=== PATIENT | male | born 1975 | race Caucasian/White ===

== ENCOUNTER 2017-12-03 15:03 | Emergency (ER) | payer OTHER ==
[~2017-12-03] VITALS: Ht 185.4 cm; Wt 86.2 kg
[~2017-12-03 15:03] MED LIST: ALBU90OI INH; CEPH500 PO; CODGUAEL PO; DOXY100 PO; ERYT.5TO OU; HYDACE5 PO; OXYACE5T PO; RXOXYACE PO; TRAM50 PO
[2017-12-03] MEDS ORDERED: IBU800 MG PO (16:12)
== END 2017-12-03 16:20 | disposition home or self-care (01) ==
LOC: ER 15:03
DX: S91.312A Laceration without foreign body, left foot, initial encounter (principal); W26.8XXA Contact with other sharp object(s), not elsewhere classified, initial encounter
CPT/HCPCS: 12002; 99282

== ENCOUNTER 2022-07-17 22:41 | Emergency (ER) | payer OTHER ==
[~2022-07-17] VITALS: Ht 182.9 cm; Wt 77.1 kg
[~2022-07-17 22:41] MED LIST changes: +IBU800 MG PO; +IBUP400 PO; +MINO50 PO
[2022-07-18] MEDS ORDERED: IBUP800 PO (04:51)
[2022-07-18] MEDS ORDERED: AMOCLA875 PO (04:51)
[2022-07-18 05:00] VITALS: BP 133/89
== END 2022-07-18 05:00 | disposition home or self-care (01) ==
LOC: ER 22:41
DX: S51.852A Open bite of left forearm, initial encounter (principal); F17.210 Nicotine dependence, cigarettes, uncomplicated; Z23 Encounter for immunization; W54.0XXA Bitten by dog, initial encounter
CPT/HCPCS: 90471; 90714; 99283-25; A9270

== ENCOUNTER 2023-10-11 08:05 | Day surgery (SDC) | payer OTHER ==
[2023-10-11] VITALS (25 sets, daily range): BP systolic 126–156; BP diastolic 88–110
[~2023-10-11] VITALS: Ht 182.9 cm; Wt 78.3 kg
[~2023-10-11 08:05] MED LIST changes: +AMOCLA875 PO; +IBUP800 PO; +Lactated Ringer's 1,000 ML IV SCH
--- NOTE | 2023-10-11 08:51 | NUR ---
History, Chart, Medications and Allergies reviewed before start of procedure. Ambulatory in Day Surgery WITH [facility]. Patient States Post-Procedure ride home has been arranged WITH GEORGE. Pre-Op teaching done. Pt verbalizes understanding. Patient confirms NPO status and agrees with scheduled surgery. BELONGINGS PLACED IN BAG AND IN PT'S BAY
[2023-10-11] MEDS ORDERED: propofoL 40 ML IV ONE (08:59)
[2023-10-11] MEDS ORDERED: Midazolam HCl 1MG / ML 2ML Vial ONE (09:04)
--- NOTE | 2023-10-11 09:07 | NUR ---
10/11/23 0907 Cely Vila HISTORY, CHART, MEDICATIONS AND ALLERGIES REVIEWED BEFORE START OF PROCEDURE. PATIENT CONFIRMS NPO STATUS AND AGREES WITH SCHEDULED PROCEDURE. 3-LEAD EKG REVIEWED WITH PHYSICIAN PRIOR TO START OF PROCEDURE. MONITOR INTACT WITH CONTINUOUS PULSE OXIMETRY,CAPNOGRAPHY, 3-LEAD EKG, INTERMITTENT BP. SUPPLEMENTAL O2 TO BE TITRATED THROUGHOUT PROCEDURE TO MAINTAIN O2 SATURATION ABOVE 90%. PATIENT DETERMINED TO BE ASA APPROPRIATE FOR PROPOFOL SEDATION PRIOR TO START OF PROCEDURE BY DR. BUCKLEY. MALLAMPATI CLASS 2 AIRWAY: COMPLETE VISUALIZATION OF THE [facility]. PATIENT ADMITS TO USING CHEWING TOBACCO THIS AM. DR. BUCKLEY AWARE. NO NEW ORDERS.
--- NOTE | 2023-10-11 10:23 | NUR ---
DISCHARGE NOTE PT A&OX4, BREATHING RA, VSS, NO COMPLAINTS, TOLERATING PO FLUIDS. SO AT BEDSIDE. Patient up to Ambulate independently. Gait steady. Discharge instructions reviewed with patient. Patient verbalizes understanding. Copy given to patient to take home. Discharged via wheelchair to private car for ride home.
== END 2023-10-11 10:20 | disposition home or self-care (01) ==
LOC: ORSCMMR 08:05 → ORD 09:00 → ORSCMMR 10:20
PROVIDERS: Internal Medicine Gastroenterology
PROC: 0DBP8ZX Excision of Rectum, Via Natural or Artificial Opening Endoscopic, Diagnostic (ICD-10-PCS; principal; 2023-10-11 09:00)
DX: Z12.11 Encounter for screening for malignant neoplasm of colon (principal); K62.1 Rectal polyp; Z79.899 Other long term (current) drug therapy
CPT/HCPCS: 88305; J2250; J2704; J7120

== ENCOUNTER 2024-01-05 06:40 | Emergency (ER) | payer OTHER ==
[~2024-01-05] VITALS: Ht 182.9 cm; Wt 77.1 kg
[~2024-01-05 06:40] MED LIST changes: -Lactated Ringer's 1,000 ML IV SCH
[2024-01-05 07:43] VITALS: BP 136/98
[2024-01-05] MEDS ORDERED: Fluorescein Sod 1MG Opth Strips LEFTEYE ONE (08:05)
[2024-01-05] MEDS ORDERED: Proparacaine 0.5% Opth Soln 15 ML BTL LEFTEYE ONE (08:05)
[2024-01-05] MEDS ORDERED: ERYT1OIN RIGHTEYE (08:29)
== END 2024-01-05 08:41 | disposition home or self-care (01) ==
LOC: ER 06:40
DX: S05.01XA Injury of conjunctiva and corneal abrasion without foreign body, right eye, initial encounter (principal); X58.XXXA Exposure to other specified factors, initial encounter
CPT/HCPCS: 99283; A9270; A9270-GY